=== PATIENT | male | born 1995 ===

== ENCOUNTER 2018-10-27 10:34 | Emergency (ER) | payer OTHER ==
[2018-10-27 10:45] VITALS: PULSE 76; RESP 18
[2018-10-27] MEDS ORDERED: DiphenhydrAMINE 50 mg/ml Inj IVP STA (11:28)
[2018-10-27] MEDS ORDERED: Famotidine 20mg/50ml 20 MG in Premixed IV 50 EA IVPB STA (11:31)
--- NOTE | 2018-10-27 11:34 | ED PDOC ---
Arrival/HPI - General Chief Complaint: GI Problem Time Seen by Provider: 10/27/18 11:07 Historian: Patient - History of Present Illness Narrative History of Present Illness (Text): 10/27/18 11:22 23 year old male, whose past medical history includes Chron's disease, who presents to the Emergency department complaining of abdominal problems, headache and blood mixed with vomit since waking after a night of drinking "a lot" of E [place]. Patient reports he woke up this morning with a pounding headache and began to vomit 5-6 times, noting it may be a flare up. Patient states he has not been taking care of himself and has been consuming EtOH and smoking marijuana often. Pt reports he has been having stomach problems ever since the age of 16. Patient states he was told to go see GI, but has not gone, noting "H. pylori was found in my lower abdomen and it has been left untreated for six years." Patient notes shortness of breath, headache and some hematemesis. Patient reports becoming very bloated after he eats. Patient denies chest pain, abdominal pain, or any other complaints. Time/Duration: Prior to Arrival Symptom Onset: Sudden Symptom Course: Unchanged Activities at Onset: Light Past Medical History - Provider Review Nursing Documentation Reviewed: Yes - Gastrointestinal Hx Colitis: Yes Hx Crohn's Disease: Yes Other/Comment: IBS - Psychiatric Hx Substance Use: Yes (marijuana) - Anesthesia Hx Anesthesia: No Hx Anesthesia Reactions: No Hx Malignant Hyperthermia: No Family/Social History - Physician Review Nursing Documentation Reviewed: Yes Family/Social History: No Known Family HX Smoking Status: Never Smoked Hx Alcohol Use: Yes Frequency of alcohol use: Daily Hx Substance Use: Yes (marijuana) Allergies/Home Meds Allergies/Adverse Reactions: Allergies eucalyptus Allergy (Verified 10/31/18 10:23) RASH Home Medications: Home Meds Medication Instructions Recorded Confirmed Dicyclomine [Bentyl] 20 mg PO BID PRN 10/31/18 10/31/18 Omeprazole 40 mg PO DAILY 10/31/18 10/31/18 Review of Systems - Physician Review All systems were reviewed & negative as marked: Yes - Review of Systems Respiratory: SOB. absent: Normal Cardiovascular: Normal. absent: Chest Pain Gastrointestinal: Vomiting (Pt notes he vomited 5-6 times this morning), Hematemesis (pt notes some blood in emesis). absent: Normal, Abdominal Pain Neurological: Headache. absent: Normal Physical Exam Vital Signs Reviewed: Yes Vital Signs Temp Pulse Resp BP Pulse Ox 10/27/18 10:34 98.6 F 76 18 139/79 98 Temperature: Afebrile Blood Pressure: Normal Pulse: Regular Respiratory Rate: Normal Appearance: Positive for: Well-Appearing, Non-Toxic, Comfortable Pain Distress: Mild Mental Status: Positive for: Alert and Oriented X 3 - Systems Exam Head: Present: Atraumatic, Normocephalic Pupils: Present: PERRL Extroacular Muscles: Present: EOMI Conjunctiva: Present: Normal Ears: Present: Normal Mouth: Present: Moist Mucous Membranes Pharnyx: Present: Normal. No: ERYTHEMA, EXUDATE, Uvular Deviation Nose (Internal): Present: Normal Inspection Neck: Present: Normal Range of Motion. No: JVD Respiratory/Chest: Present: Clear to Auscultation, Good Air Exchange. No: Respiratory Distress, Accessory Muscle Use Cardiovascular: Present: Regular Rate and Rhythm, Normal S1, S2. No: Murmurs Abdomen: No: Tenderness, Distention, Rebound Back: Present: Normal Inspection Upper Extremity: Present: Normal Inspection, Normal ROM, NORMAL PULSES. No: Cyanosis, Edema (no edema noted), Tenderness, Erythema Lower Extremity: Present: Normal Inspection, NORMAL PULSES, Normal ROM. No: Edema (no pitting edema noted), Cyanosis, Tenderness, Erythema Neurological: Present: GCS=15, CN II-XII Intact, Speech Normal Skin: Present: Warm, Dry, Normal Color. No: Rashes Psychiatric: Present: Alert, Oriented x 3, Normal Insight, Normal Concentration Medical Decision Making ED Course and Treatment: 10/27/18 11:22 Impression: 23 year old male presents to the Emergency department after a night of drinking EtOH the night before, sounds like he has an URI, and has some gastritis Differential Diagnosis included but are not limited to: Plan: -- Labs -- Benadryl -- Decadron Inj -- Pepcid -- Reglan -- Tylenol -- Reassess and disposition Progress Notes: 10/27/18 13:20 Upon reevaluation, pt is feeling better and wants to eat as he is hungry and states he is ready for discharge. 10/27/18 14:00 PO challenge, patient vomited after eating. 10/27/18 14:40 Pt was able to eat and is feeling better. Pt is ready for discharge. - Scribe Statement The provider has reviewed the documentation as recorded by the Scribe Elvira Amado All medical record entries made by the Scribe were at my direction and personally dictated by me. I have reviewed the chart and agree that the record accurately reflects my personal performance of the history, physical exam, medical decision making, and the department course for this patient. I have also personally directed, reviewed, and agree with the discharge instructions and disposition. Disposition/Present on Arrival - Present on Arrival Any Indicators Present on Arrival: No History of DVT/PE: No History of Uncontrolled Diabetes: No Urinary Catheter: No History of Decub. Ulcer: No History Surgical Site Infection Following: None - Disposition Have Diagnosis and Disposition been Completed?: Yes Diagnosis: Headache, Gastritis Disposition: HOME/ ROUTINE Disposition Time: 14:56 Patient Plan: Discharge Condition: IMPROVED Discharge Instructions (ExitCare): Gastritis Referrals: [facility] at [facility] [place] [Outside] - Follow up with primary Forms: [facility] (Bel[place]an), WORK NOTE
[2018-10-27 11:46] LABS: BASO # 0.01 K/mm3 (0.0-2.0); BASO % 0.2 % (0.0-3.0); EOS % 0.5 % (1.5-5.0); GRAN # 4.44 (1.4-6.5); GRAN % 69.1 % (50.0-68.0); HEMOGLOBIN 14.8 g/dL (14.0-18.0); LYMPH # 1.6 (1.2-3.4); LYMPH % 24.6 % (22.0-35.0); MEAN CELL VOLUME 92.9 fl (80.0-105.0); MEAN CORPUSCULAR HEMOGLOBIN 31.6 pg (25.0-35.0); MEAN PLATELET VOLUME 9.9 fl (7.0-11.0); MONO # 0.4 (0.1-0.6); MONO % 5.6 % (1.0-6.0); RBC 4.68 10^6/uL (3.5-6.1); RED CELL DISTRIBUTION WIDTH 12.6 % (11.5-14.5); WHITE BLOOD COUNT 6.4 10^3/uL (4.5-11.0)
[2018-10-27 12:01] LABS: ALB/GLOB RATIO 1.5 (1.1-1.8); ALBUMIN 4.8 g/dL (3.0-4.8); ALT/SGPT 29 U/L (7-56); AST/SGOT 30 U/L (17-59); BLOOD UREA NITROGEN 10 mg/dL (7-21); CALCIUM 9.5 mg/dL (8.4-10.5); GFR NON-AFRICAN AMERICAN > 60; LIPASE 54 U/L (23-300)
[2018-10-27] MEDS ORDERED: Sodium Chloride 0.9% 1,000 ML IV STA (14:14)
[2018-10-27 15:22] VITALS: BP 129/73; TEMP 97.6; O2SAT 99
== END 2018-10-27 15:28 | disposition home or self-care (01) ==
LOC: ED 10:34
DX: K29.70 Gastritis, unspecified, without bleeding (principal); R51 Headache; K50.90 Crohn's disease, unspecified, without complications
CPT/HCPCS: 80053; 83690; 85025; 96361; 96374; 96375; 99284; J1100; J1200; J2405; J2765; J7030